=== PATIENT | female | born 1990 | race African-American/Black ===

== ENCOUNTER → 2017-08-17 | Day surgery (SDC) | payer OTHER ==
[~2017-08-17] MED LIST: LIDOCAINE HCL/PF 2% SDV 5ML VIAL ONE; PROPOFOL 20 ML ONE
[2017-08-17 12:05] VITALS: BMI 29.3
--- NOTE | 2017-08-17 12:49 | PROC ---
Endoscopy Procedure Endoscopy procedure completed. Please see scanned procedure report.
[2017-08-17 13:03] VITALS: TEMP 98.2
[2017-08-17 13:50] VITALS: BP 108/78; PULSE 71
--- NOTE | 2017-08-18 16:39 | PATH ---
Surgical Pathology Report Patient Name: JAMAR GREENWOOD [facility]. Rec. #: [id number] /Age/Gender: 1990 (Age: 27) / F Account: [id number] Location: U-ENDOSCOPY Taken: 08/17/2017 Received: 08/17/2017 Reported: 08/18/2017 Physicians: Franocis Steward M.D. Specimen(s) Received A: SMALL BOWEL, BIOPSY B: BX ANTRUM BODY Clinical History Irritable bowel syndrome with constipation Postoperative diagnosis: Dyspepsia Final Diagnosis A. JEJUNUM, SECOND PORTION, BIOPSY: SMALL BOWEL MUCOSA WITHOUT SIGNIFICANT PATHOLOGIC FINDINGS. B. STOMACH, BODY, INTERMIX, BIOPSY: GASTRIC BODY MUCOSA WITH MODERATE CHRONIC GASTRITIS. IMMUNOHISTOCHEMICAL STAIN FOR H. PYLORI IS NEGATIVE. Electronically Signed Isabel Woods M.D. Gross Description A. Received in formalin, labeled "second portion of jejunum" are 2 rico, irregular portions of soft tissue averaging 0.2 cm. in greatest dimension. The specimens are submitted in toto in one cassette. B. Received in formalin, labeled "intermix body" are 3 rico, irregular portions of soft tissue ranging from 0.1-0.4 cm. in greatest dimension. The specimens are submitted in toto in one cassette. 08/17/2017 saudi08/17/2017
== END | disposition home or self-care (01) ==
LOC: JASU-ENDO 11:13
PROVIDERS: ATTEND Internal Medicine Gastroenterology
PROC: 0DB68ZX Excision of Stomach, Via Natural or Artificial Opening Endoscopic, Diagnostic (ICD-10-PCS; 2017-08-17)
PROC: 0DB98ZX Excision of Duodenum, Via Natural or Artificial Opening Endoscopic, Diagnostic (ICD-10-PCS; principal; 2017-08-17 12:30)
DX: K29.70 Gastritis, unspecified, without bleeding (principal)
CPT/HCPCS: 84703; 88305-TC; 88342-TC

== ENCOUNTER 2017-12-23 06:45 | Emergency (ER) | payer OTHER ==
[2017-12-23 07:44] VITALS: BP 108/71; PULSE 71; TEMP 98.8
[2017-12-23] MEDS ORDERED: KETOROLAC TROMETHAMINE 60 MG/2 ML VIAL IM ONE (08:20)
[2017-12-23] MEDS ORDERED: KETOROLAC TROMETHAMINE 60 MG/2 ML VIAL ONE (08:22)
--- NOTE | 2017-12-23 08:23 | PDOC ---
History of Present Illness - General Chief Complaint: Back Pain Stated Complaint: LOWER BACK PAIN Time Seen by Provider: 12/23/17 08:17 History Source: Patient Exam Limitations: Clinical Condition - History of Present Illness Initial Comments: 12/23/17 08:38 Patient with no sig Past medical history present with complain of sudden onset of lower back pain upon wake early this morning. Denies any trauma or injury to back. Denies any other symptoms Timing/Duration: 4-6 hours Past History - Past Medical History Allergies/Adverse Reactions: Allergies Allergy/AdvReac Type Severity Reaction Status Date / Time No Known Allergies Allergy Verified 12/23/17 07:33 Home Medications: Ambulatory Orders Levetiracetam [Keppra] 750 mg PO HS 06/03/17 levETIRAcetam [Keppra -] 500 mg PO DAILY 06/03/17 Methocarbamol [Robaxin -] 500 mg PO TID PRN #21 tablet 12/23/17 Naproxen 500 mg PO BID PRN #20 tablet 12/23/17 Anemia: No COPD: No Seizures: Yes - Suicide/Smoking/Psychosocial Hx Smoking History: Never smoked Have you smoked in the past 12 months: No Information on smoking cessation initiated: No Hx Alcohol Use: No Drug/Substance Use Hx: No Substance Use Type: None Hx Substance Use Treatment: No Review of Systems - Review of Systems Able to Perform ROS?: Yes Is the patient limited [place] proficient: No Constitutional: No: Chills, Diaphoresis, Fever, Loss of Appetite, Malaise, Night Sweats, Weakness, Weight Stable, Unintentional Wgt. Loss, Unexplained wgt Loss, Other HEENTM: No: Eye Pain, Blurred Vision, Tearing, Recent change in vision, Double Vision, Cataracts, Ear Pain, Ocular Prothesis, Ear Discharge, Nose Pain, Nose Congestion, Tinnitus, Nose Bleeding, Hearing Loss, Throat Pain, Throat Swelling , Mouth Pain, Dental Problems, Difficulty Swallowing, Mouth Swelling, Other Respiratory: No: Cough, Orthopnea, Shortness of Breath, SOB with Exertion, SOB at Rest, Stridor, Wheezing, Productive cough, Hemoptysis, Other Cardiac (ROS): No: Chest Pain, Edema, Irregular Heart Rate, Lightheadedness, Palpitations, Syncope, Chest Tightness, Other ABD/GI: No: Abdominal Distended, Abd. Pain w/ defecation, Blood Streaked Bowels , Constipated, Diarrhea, Difficulty Swallowing, Nausea, Poor Appetite, Poor Fluid Intake, Rectal Bleeding, Vomiting, Indigestion, Abdominal cramping, Tarry Stools, Other Musculoskeletal: Yes: See HPI, Back Pain (right lower back), Muscle Pain (lower back). No: Muscle Weakness All Other Systems: Reviewed and Negative *Physical Exam - Vital Signs Last Vital Signs Temp Pulse Resp BP Pulse Ox 98.8 F 71 18 108/71 100 12/23/17 07:34 12/23/17 07:34 12/23/17 07:34 12/23/17 07:34 12/23/17 07:34 - Physical Exam Comments: 12/23/17 08:40 GENERAL: Well developed, well nourished. Awake and alert. No acute distress. HEENT: Normocephalic, atraumatic. PERRLA, EOMI. No conjunctival pallor. Sclera are non- icteric. Moist mucous membranes. Oropharynx is clear. NECK: Supple. Full ROM. No JVD. Carotid pulses 2+ and symmetric, without bruits. No thyromegaly. No lymphadenopathy. CARDIOVASCULAR: Regular rate and rhythm. No murmurs, rubs, or gallops. Distal pulses are 2+ and symmetric. PULMONARY: No evidence of respiratory distress. Lungs clear to auscultation bilaterally. No wheezing, rales or rhonchi. ABDOMINAL: Soft. Non-tender. Non-distended. No rebound or guarding. No organomegaly. Normoactive bowel sounds. MUSCULOSKELETAL : Moderate tenderness to paravertebral muscle on right side of L4-S1. No midline tenderness Normal range of motion at all joints. No bony deformities . No CVA tenderness. EXTREMITIES: No cyanosis. No clubbing. No edema. No calf tenderness. SKIN: Warm and dry. Normal capillary refill. No rashes. No jaundice. NEUROLOGICAL: Alert, awake, appropriate. Cranial nerves 2-12 intact. No deficits to light touch and temperature in face, upper extremities and lower extremities. No motor deficits in the in face, upper extremities and lower extremities. Normoreflexic in the upper and lower extremities. Normal speech. Toes are down- going bilaterally. Gait is normal without ataxia. PSYCHIATRIC: Cooperative. Good eye contact. Appropriate mood and affect. General Appearance: Yes: Nourished, Appropriately Dressed. No: Apparent Distress Medical Decision Making - Medical Decision Making 12/23/17 08:43 Patient with no sig Past medical history present with complain of sudden onset of right-sided lower back pain upon wake without any trauma or injury. Exam shows moderate tenderness to paravertebral muscle of the lower back. Symptoms likely muscle spasm. Toradol 60 mg IM given for pain and cyclobenzaprine 5mg by mouth for muscle spasm. Patient be discharged home on muscle relaxer and NSAIDs with orthopedist follow-up as needed *DC/Admit/Observation/Transfer Diagnosis at time of Disposition: Back muscle spasm Lumbago Qualifiers: Chronicity: acute Back pain laterality: right Sciatica presence: without sciatica Qualified Code(s): M54.5 - Low back pain - Discharge Dispostion Disposition: HOME Condition at time of disposition: Stable Decision to Admit order: No - Prescriptions Prescriptions: Methocarbamol [Robaxin -] 500 mg PO TID PRN #21 tablet PRN Reason: Back Pain Naproxen 500 mg PO BID PRN #20 tablet PRN Reason: Back Pain - Referrals Referrals: Lacho Marrero MD [Primary Care Provider] - Raúl Vaughn MD [Staff Physician] - - Patient Instructions Printed Discharge Instructions: DI for Back Spasm, DI for Back Strain or Sprain Additional Instructions: Take prescribed medication as prescribed as needed for pain. Follow-up with preferred orthopedics if symptoms persisted for more than 4 days - Post Discharge Activity Forms/Work/School Notes: Back to Work
[2017-12-23] MEDS ORDERED: CYCLOBENZAPRINE HCL 10 MG TABLET (FP) PO ONE (08:41)
[2017-12-23] MEDS ORDERED: CYCLOBENZAPRINE HCL 10 MG TABLET (FP) ONE (08:43)
== END 2017-12-23 09:15 | disposition home or self-care (01) ==
LOC: JERFT 06:45 → JER 06:45 → JERFT 09:15
PROC: 3E0233Z Introduction of Anti-inflammatory into Muscle, Percutaneous Approach (ICD-10-PCS; principal; 2017-12-23)
DX: M62.830 Muscle spasm of back (principal); G40.909 Epilepsy, unspecified, not intractable, without status epilepticus
CPT/HCPCS: 99281-25

== ENCOUNTER 2021-01-04 18:19 | Emergency (ER) | payer OTHER ==
[2021-01-04 18:37] VITALS: BP 125/85; PULSE 75; TEMP 99.2; BMI 34.1
[2021-01-04] MEDS ORDERED: ACETAMINOPHEN 500 MG TABLET (FP) PO ONE (19:27)
[2021-01-04] MEDS ORDERED: ACETAMINOPHEN 325 MG TABLET (FP) ONE (19:28)
[2021-01-04] MEDS ORDERED: METHOCARBAMOL 750 MG TAB PO ONE (20:44)
[2021-01-04] MEDS ORDERED: METHOCARBAMOL 500 MG TABLET ONE (20:51)
== END 2021-01-04 21:31 | disposition home or self-care (01) ==
LOC: FER 18:19
DX: M62.838 Other muscle spasm (principal); V03.00XA Pedestrian on foot injured in collision with car, pick-up truck or van in nontraffic accident, initial encounter; Y93.01 Activity, walking, marching and hiking
CPT/HCPCS: 73030-TC-LT-FY; 73130-TC-LT-FY; 73523-TC-FY; 73610-TC-LT-FY; 73630-TC-LT; 99285-25